=== PATIENT | male | born 1985 | race Caucasian/White ===

== ENCOUNTER 2018-01-02 21:51 | Emergency (ER) | payer BC ==
[2018-01-02 22:26] VITALS: BP 116/60
[2018-01-02] MEDS: Ondansetron ODT TAB* 4 MG PO ONE ×2 (22:49→23:19)
--- NOTE | 2018-01-02 23:20 | UC ---
Abdominal Pain Male HPI - HPI Summary HPI Summary: 32 year old male with nausea and vomiting. Vomiting started 1630, next episode was 1900, now vomiting episodes every 1/2 hr., last episode was 2200, joints are aching, slight head ache, nausea; slight cough. No blood in vomit. He wasnt sure if he ate something bad. Had normal BM at 1900. No blood. Concern for viral infection or maybe the flu. No majoy body aches. [ End ] - History of Current Complaint Chief Complaint: UCGI Stated Complaint: VOMITING Time Seen by Provider: 01/02/18 22:59 Hx Obtained From: Patient, Family/Cloth Winding Supervisor Onset/Duration: Sudden Onset Timing: Constant Severity Initially: Moderate Severity Currently: Moderate Pain Intensity: 7 - Allergies/Home Medications Allergies/Adverse Reactions: Allergies Allergy/AdvReac Type Severity Reaction Status Date / Time hay Allergy Eyes Uncoded 01/02/18 22:15 Itchy/Swollen/Red/Watery Home Medications: Home Medications Bismuth Subsalicylate [Pepto-Bismol Max Strength] 525 mg PO ONCE PRN 01/02/18 [ History Confirmed 01/02/18] PMH/Surg Hx/FS Hx/Imm Hx Previously Healthy: Yes - Surgical History Surgical History: None - Family History Known Family History: Positive: None - Social History Occupation: Employed Full-time Alcohol Use: Rare Substance Use Type: None Smoking Status (MU): Light Every Day Tobacco Smoker - Immunization History Most Recent Tetanus Shot: 2010 Review of Systems Constitutional: Fatigue Gastrointestinal: Vomiting, Diarrhea, Nausea Is Patient Immunocompromised?: No All Other Systems Reviewed And Are Negative: Yes Physical Exam Triage Information Reviewed: Yes Appearance: Well-Appearing, Well-Nourished Vital Signs: Initial Vital Signs Temp 98.4 F 01/02/18 22:18 Pulse 98 01/02/18 22:18 Resp 18 01/02/18 22:18 BP 116/60 01/02/18 22:18 Pulse Ox 98 01/02/18 22:18 Vital Signs Reviewed: Yes Eye Exam: Normal ENT Exam: Normal Dental Exam: Normal Neck exam: Normal Neck: Positive: 1 Respiratory Exam: Normal Cardiovascular Exam: Normal Abdominal Exam: Normal Abdomen Description: Positive: Nontender, No Organomegaly, Soft. Negative: CVA Tenderness (R), CVA Tenderness (L) Musculoskeletal Exam: Normal Neurological Exam: Normal Psychological Exam: Normal Skin Exam: Normal Abd Pain Male Course/Dx - Course Course Of Treatment: no abdominal pain so little concern for intra abdominal concern. Had BM just a few hours ago so do not think there is obstruction. Appears to be viral in nature. Given zofran here and mild improvement. Discussed at length with patient that we can not perform stat labs here and that if the zofran does not work to reduce nausea / stop him from vomiting he needs to go to ED for complete work up . He is aware agrees he will go there if not better but declined going there at this time. - Differential Dx/Clinical Impression Differential Diagnosis/HQI/PQRI: Other - viral gastroenteritis Provider Diagnoses: viral gastroenteritis Discharge - Discharge Plan Condition: Good Disposition: HOME Prescriptions: Ondansetron TAB* [Zofran 4 MG Tab*] 4 mg PO Q6H PRN #20 tab PRN Reason: Nausea Patient Education Materials: Gastroenteritis (ED), Acute Nausea and Vomiting ( ED) Forms: *Work Release Referrals: Non Staff,Doctor [Primary Care Provider] - 1 Day Additional Instructions: If your symptoms persist or worsen this evening please go to the emergency room
== END 2018-01-02 23:27 | disposition home or self-care (01) ==
LOC: UCCORT 21:51
DX: A08.4 Viral intestinal infection, unspecified (principal); F17.210 Nicotine dependence, cigarettes, uncomplicated
CPT/HCPCS: 99212; A9270-GY; G0463